=== PATIENT | female | born 1940 | race African-American/Black ===

== ENCOUNTER → 2023-04-27 11:49 | Outpatient (REF) | payer OTHER, SELFPAY | LOC: REG 11:49 | PROVIDERS: ATTENDING PHYSICIAN Family Medicine | DX: A04.72 Enterocolitis due to Clostridium difficile, not specified as recurrent (principal); A07.1 Giardiasis [lambliasis]; R19.5 Other fecal abnormalities | CPT/HCPCS: 87045; 87046; 87324; 87328; 87329; 87427; 87449 ==